=== PATIENT | male | born 1970 | race Two or more races ===

== ENCOUNTER 2019-02-25 20:37 | Outpatient (CLI) | payer OTHER | END 2019-02-25 20:58 | disposition home or self-care (01) | LOC: LAB 20:37 | DX: R97.20 Elevated prostate specific antigen [PSA] (principal) ==

== ENCOUNTER → 2019-04-03 | Outpatient (CLI) | payer OTHER | END | disposition home or self-care (01) | LOC: SONOGRAMA 07:23 | DX: R97.20 Elevated prostate specific antigen [PSA] (principal) ==